=== PATIENT | female | born 1970 | race Caucasian/White ===

== ENCOUNTER 2024-08-26 09:11 | Day surgery (SDC) | payer OTHER ==
[2024-08-26] MEDS: TYLENOL EXTRA STRENGTH 500 MG PO ONE (09:28)
[2024-08-26] MEDS: Decadron 4 MG PO ONE (09:28)
[2024-08-26] MEDS: Lactated Ringers 1,000 ML IV SCH (09:28)
[2024-08-26] MEDS: NEURONTIN PO ONE (09:28)
[2024-08-26] MEDS: celeBREX 100 MG PO ONE (09:28)
[2024-08-26] MEDS: MEFOXIN 2 GM PREMIX** 2 GM/50 ML ML IV SCH (09:29)
[2024-08-26] MEDS ORDERED: Versed 2 MG/2 ML Injection ONE (10:25)
[2024-08-26] MEDS ORDERED: DEXMEDETOMIDINE 80 MCG/20ML-NS IV ONE (10:26)
[2024-08-26] MEDS ORDERED: BRIDION 200MG/2ML IV ONE (10:26)
[2024-08-26] MEDS ORDERED: TORAdol 30 mg Injection ONE (10:26)
[2024-08-26] MEDS ORDERED: ROCURONIUM BROMIDE IV ONE (10:26)
[2024-08-26] MEDS ORDERED: Xylocaine-Mpf 2% 5 Ml Vial ONE (10:26)
[2024-08-26] MEDS ORDERED: Zofran 4 MG/2 ML VIAL ONE (10:26)
[2024-08-26] MEDS ORDERED: SUBLIMAZE 100 MCG/2 ML ONE (10:26)
[2024-08-26] MEDS ORDERED: propofoL IV ONE (10:26)
[2024-08-26] MEDS ORDERED: Pre-Attached Lta Kit TP ONE (10:34)
[2024-08-26] MEDS ORDERED: Sensorcaine 0.25% 10 ML ONE (10:47)
[2024-08-26] MEDS ORDERED: Sodium Chloride 0.9% 1000 ML 1,000 ML ONE (10:48)
[2024-08-26] MEDS ORDERED: Ephedrine Sulfate 50 MG/ML ONE (11:01)
[2024-08-26 12:33] VITALS: RESP 18; TEMP 97.6
[2024-08-26 12:43] VITALS: BP 107/63; PULSE 88; O2SAT 94
--- NOTE | 2024-08-27 13:08 | OP ---
SURGERY DATE/TIME: 08/26/2024 [id number] PREOPERATIVE DIAGNOSIS: Symptomatic cholelithiasis. POSTOPERATIVE DIAGNOSIS: Symptomatic cholelithiasis. PROCEDURE: Laparoscopic cholecystectomy. SURGEON: Salinas Dorsey M.D. DESCRIPTION OF PROCEDURE: Gallbladder removed. Field was totally dry and clean. Hole closing device was tightened up with 0 Vicryl. Skin closed with 4-0 Vicryl. Steri-Strips applied. Sterile dressings. Findings discussed with in waiting room. IMPRESSION: Successful cholecystectomy.
== END 2024-08-26 12:55 | disposition home or self-care (01) ==
LOC: SDC 09:11
PROVIDERS: ATTEND Surgery
DX: K80.20 Calculus of gallbladder without cholecystitis without obstruction (principal)
CPT/HCPCS: J0694; J1885; J2250; J2405; J2704; J3010; A9270-GY